=== PATIENT | male | born 1985 | race Hispanic/Latino ===

== ENCOUNTER 2024-11-17 18:17 | Emergency (ER) | payer BC ==
[~2024-11-17] VITALS: Ht 167.6 cm; Wt 104.3 kg
--- NOTE | 2024-11-17 18:23 | ERN ---
General Chief Complaint: Abdominal Pain Stated Complaint: RUQ ABDOMINAL PAIN Time Seen by MD: 18:19 Time Seen by Midlevel: 18:19 Source: patient History of Present Illness Initial Comments Patient is a 39-year-old male with no significant past medical history presenting to the emergency department with right upper quadrant abdominal pain that started 3 hours prior to arrival. The patient states he was eating cocaine chips when the pain started. The pain has progressively worsened. Denies any nausea vomiting or fever. Denies any past surgeries. Allergies: Coded Allergies: No Known Drug Allergies (Unverified Allergy, Unknown, 11/17/24) ROS Dictation CONSTITUTIONAL: Negative except for HPI HEAD/FACE: Negative except for HPI EENT: Negative except for HPI RESPIRATORY: Negative except for HPI GASTROINTESTINAL/ABDOMINAL: Negative except for HPI GENITOURINARY: Negative except for HPI MUSCULOSKELETAL: Negative except for HPI INTEGUMENTARY: Negative except for HPI NEUROLOGICAL/PSYCH: Negative except for HPI HEMATOLOGIC/LYMPHATIC: Negative except for HPI All Systems Negative, Except as noted above. 13 point review of systems assessed and all negative except for above. Physical Exam Physical Exam Dictation Vital Signs reviewed General Appearance: Alert, oriented x 3, no acute distress, well developed, nourished. Head and Face: non-traumatic. Eyes: PERRL, pink conjunctivas, eyelid no trauma, anterior chamber with arcus senilis. Ears: Pinnas intact and no signs of trauma or erythema ear canals clear and no discharge TM no erythema Nose: No discharge, no bleeding. Oropharynx: Mouth normal, tongue pink, pharynx clear,no erythema, tonsils no exudates, no abscesses noted, mucous membrane moist Neck: Supple, non-tender, no thyromegaly, no masses, no JVD, no bruits Breast:Deferred Chest:No tenderness, no crepitus, no paradoxical movement, no retractions Lungs:Clear, well-ventilated, symmetric, no rales, no wheezing, no rhonchi, no stridor, good breath sounds bilaterally Heart: Regular rate, regular rhythm, no murmur, no gallops Vascular: no peripheral edema, Abdomen: Soft, positive bowel sounds, nondistended, no guarding, nontender, no rebound, no masses no hepatomegaly, no splenomegaly, no Toledo's sign, no hernias. Rectal: Deferred Genital: Deferred Neurological: Normal speech, motor function intact, sensory function intact Musculoskeletal: Neck nontender, full range of motion, back nontender, full range of motion, Extremities: nontender, full range of motion Skin: Color pink, dry, no turgor, no rash, no lacerations, no abrasions, no contusions. Lymphatic: Deferred Results Laboratory and Microbiology Lab and Micro Result Laboratory Tests Test 11/17/24 18:39 White Blood Count 7.1 K/uL (4.8-10.8) Red Blood Count 4.54 MIL/uL (4.50-6.20) Hemoglobin 14.5 g/dL (14.0-18.0) Hematocrit 42.1 % (42-54) Mean Corpuscular Volume 92.7 fL (79-99) Mean Corpuscular Hemoglobin 31.9 pg (27.0-33.0) Mean Corpuscular Hemoglobin Concent 34.4 g/dL (32.0-36.0) Red Cell Distribution Width 12.6 % (11.0-15.5) Platelet Count 239 K/uL (130-400) Mean Platelet Volume 10.4 fL (7.5-10.5) Immature Granulocyte % (Auto) 0.4 % (0-1) Neutrophils (%) (Auto) 55.1 % (40.0-77.0) Lymphocytes (%) (Auto) 35.6 % (21.0-51.0) Monocytes (%) (Auto) 5.9 % (3.0-13.0) Eosinophils (%) (Auto) 2.4 % (0.0-8.0) Basophils (%) (Auto) 0.6 % (0.0-5.0) Neutrophils # (Auto) 3.9 K/uL (1.8-7.7) Lymphocytes # (Auto) 2.5 K/uL (1.0-4.8) Monocytes # (Auto) 0.4 K/uL (0.1-1.0) Eosinophils # (Auto) 0.17 K/uL (0.00-0.70) Basophils # (Auto) 0.04 K/uL (0.00-0.20) Absolute Immature Granulocyte (auto 0.03 K/uL (0-1) Nucleated Red Blood Cells 0.0 % (0.0-0.19) Sodium Level 138 mmol/L (136-145) Potassium Level 4.0 mmol/L (3.5-5.1) Chloride Level 105 mmol/L (101-111) Carbon Dioxide Level 29 mmol/L (21-32) Blood Urea Nitrogen 17 mg/dL (7-18) Creatinine 0.9 mg/dL (0.5-1.3) Glomerular Filtration Rate Calc 111 mL/min (>90) Random Glucose 116 mg/dL (70-105) H Total Calcium 8.6 mg/dL (8.5-10.1) Total Bilirubin 0.4 mg/dL (0.2-1.0) Direct Bilirubin 0.1 mg/dL (0.0-0.3) Aspartate Amino Transf (AST/SGOT) 23 U/L (10-37) Alanine Aminotransferase (ALT/SGPT) 25 U/L (12-78) Alkaline Phosphatase 58 U/L (50-136) Total Protein 6.9 g/dL (6.0-8.3) Albumin 3.7 g/dL (3.5-5.0) Lipase 39 U/L (16-77) Labs Reviewed?: Yes MDM MDM: Patient is a 39-year-old male with no significant past medical history presenting to the emergency department with right upper quadrant abdominal pain that started 3 hours prior to arrival. The patient states he was eating cocaine chips when the pain started. The pain has progressively worsened. Denies any nausea vomiting or fever. Denies any past surgeries. On physical examination the patient has right upper quadrant abdominal tenderness with no rebound or guarding. Patient does not appear to be in any acute distress. Initial vital signs are stable. Patient was afebrile and nontoxic appearing. CBC shows no leukocytosis, no anemia, no thrombocytopenia. Chemistries are unremarkable. Liver function tests and bilirubin are normal. Right upper quadrant ultrasound reveals cholelithiasis with no evidence of acute cholecystitis. The patient was explained exactly what his ultrasound findings mean. He understood and all of his questions were answered. He will need to follow up with a general surgeon outpatient for possible cholecystectomy. There was no need for emergent intervention at this time given that there is no evidence of acute cholecystitis and liver function tests including bilirubin is normal. The patient was given pain control in the ER and will be discharged home. Differential diagnosis: Cholelithiasis, biliary colic, cholecystitis, pancreatitis There are no social concerns with this patient. Prescription drug management Prescriptions will include: See discharge summary Medical management and examination interpretation discussions were had by me with other qualified healthcare professionals as indicated for the patient's care. ED Course Orders Procedure Category Date Status Time Cbc With Differential LAB 11/17/24 Complete 18:21 Basic Metabolic Panel LAB 11/17/24 Complete 18:21 Hepatic Function Panel LAB 11/17/24 Complete 18:21 Lipase LAB 11/17/24 Complete 18:21 Us Abdominal Ruq\Ltd US 11/17/24 Resulted 18:21 Vital Signs Date Time Temp Pulse Resp B/P (MAP) Pulse Ox O2 Delivery O2 Flow Rate FiO2 11/17/24 18:19 98.6 63 20 164/90 99 Room Air 0 [place] [id number] [address] IMAGING REPORT Signed PATIENT: KARLA QUISPE MR#: [id number] : 1985 SEX: M AGE: 39 LOCATION: [facility] ORDER 21 STATUS: REG ER REPORT#: [id number] SERVICE 20 REASON: r/o acute cholecystitis ORDERING PHYSICIAN: CELESTINA COOPER PROCEDURE: ABDRUQLTD - US ABDOMINAL RUQ\LTD ULTRASOUND ABDOMEN LIMITED INDICATION: Right upper abdominal pain COMPARISON: None FINDINGS: The liver is normal in size and increased in echogenicity; no focal lesion demonstrated. Main portal vein is patent, and normal direction of vascular flow demonstrated. The common bile duct diameter measures 2.8 mm. Gallbladder is distended, an echogenic shadowing stones demonstrated within the gallbladder lumen without associated pericholecystic fluid. No sonographic Toledo's sign elicited by the ultrasound asphalt screed operator. Wall thickness measures 2.7 mm. Pancreas is obscured by overlying bowel gas. The right kidney measures 11.0 x 4.0 x 6.0 cm,and is normal in echogenicity, without evidence for hydronephrosis.No shadowing stones demonstrated. No free fluid demonstrated. IMPRESSION: Limitations as reported. Cholelithiasis and gallbladder distention without cholecystitis at this juncture. Findings suggesting hepatic steatosis. DICTATED BY: NAS PARKER MD DATE: 11/17/241903 ELECTRONICALLY SIGNED BY: NAS PARKER MD DATE: 11/17/241907 DX & DISP Disposition: Discharge Departure Impression: Primary Impression: Cholelithiasis Additional Impression: Biliary colic Condition: Stable Scripts Ketorolac Tromethamine (Ketorolac Tromethamine) 10 Mg Tablet 1 TAB PO TID for pain for 5 Days, #15 TAB 0 Refills Prov: CELESTINA COOPER 11/17/24 Famotidine (Pepcid) 20 Mg Tablet 1 TAB PO BID for 30 Days, #60 TAB 0 Refills Prov: CELESTINA COOPER 11/17/24 Ondansetron (Ondansetron Odt) 4 Mg Tab.rapdis 4 MG PO BID for 7 Days, #14 TAB Prov: CELESTINA COOPER 11/17/24 Additional Instructions: Your blood work today is unremarkable. Your liver function tests including your bilirubin is normal. Your ultrasound shows evidence of gallstones in your gallbladder however there was no signs of an acute infection. No need for emergent surgery at this time. However, given that we found gallstones you will need to see a general surgeon outpatient for further evaluation and possible surgery. Have given you several medications that should help improve your symptoms. Referrals: SELF,REFERRAL (PCP) GABRIELLE MILLARD MD Time of Disposition: 19:51 I have reviewed the case, and I agree with, Diagnosis and Plan I performed the substantive portion of the visit. I have reviewed and personally made and approve the management plan that is documented in the note by myself or the JONATHAN. I acknowledge for responsibility for the patient's management plan. CELESTINA COOPER Nov 17, 2024 18:23
[2024-11-17 18:48] LABS: BASOPHILS # (AUTO) 0.04 K/uL (0.00-0.20); BASOPHILS % (AUTO) 0.6 % (0.0-5.0); EOSINOPHILS # (AUTO) 0.17 K/uL (0.00-0.70); EOSINOPHILS % (AUTO) 2.4 % (0.0-8.0); HEMATOCRIT 42.1 % (42-54); IMMATURE GRANULOCYTE ABSOLUTE 0.03 K/uL (0-1); LYMPHOCYTES # (AUTO) 2.5 K/uL (1.0-4.8); LYMPHOCYTES % (AUTO) 35.6 % (21.0-51.0); MEAN CORPUSCULAR HEMOGLOBIN 31.9 pg (27.0-33.0); MEAN CORPUSCULAR HGB CONC 34.4 g/dL (32.0-36.0); MEAN CORPUSCULAR VOLUME 92.7 fL (79-99); MONOCYTES # (AUTO) 0.4 K/uL (0.1-1.0); MONOCYTES % (AUTO) 5.9 % (3.0-13.0); NEUTROPHILS # (AUTO) 3.9 K/uL (1.8-7.7); NEUTROPHILS % (AUTO) 55.1 % (40.0-77.0); PLATELET COUNT (AUTO) 239 K/uL (130-400); RED BLOOD CELL COUNT(AUTO) 4.54 MIL/uL (4.50-6.20); RED CELL DISTRIBUTION WIDTH 12.6 % (11.0-15.5); WHITE BLOOD COUNT (AUTO) 7.1 K/uL (4.8-10.8)
[2024-11-17 19:01] LABS: CREATININE 0.9 mg/dL (0.5-1.3)
[2024-11-17 19:05] LABS: ALBUMIN 3.7 g/dL (3.5-5.0); BILIRUBIN,DIRECT 0.1 mg/dL (0.0-0.3); BILIRUBIN,TOTAL 0.4 mg/dL (0.2-1.0); TOTAL PROTEIN, SERUM 6.9 g/dL (6.0-8.3)
--- NOTE | 2024-11-17 19:08 | HMCIMG ---
ULTRASOUND ABDOMEN LIMITED INDICATION: Right upper abdominal pain COMPARISON: None FINDINGS: The liver is normal in size and increased in echogenicity; no focal lesion demonstrated. Main portal vein is patent, and normal direction of vascular flow demonstrated. The common bile duct diameter measures 2.8 mm. Gallbladder is distended, an echogenic shadowing stones demonstrated within the gallbladder lumen without associated pericholecystic fluid. No sonographic Toledo's sign elicited by the ultrasound operator command support systems. Wall thickness measures 2.7 mm. Pancreas is obscured by overlying bowel gas. The right kidney measures 11.0 x 4.0 x 6.0 cm,and is normal in echogenicity, without evidence for hydronephrosis.No shadowing stones demonstrated. No free fluid demonstrated. IMPRESSION: Limitations as reported. Cholelithiasis and gallbladder distention without cholecystitis at this juncture. Findings suggesting hepatic steatosis.
[2024-11-17] MEDS ORDERED: ONDA-243 PO (19:52)
[2024-11-17] MEDS ORDERED: KETO10TA2 PO (19:52)
[2024-11-17] MEDS ORDERED: FAMO-136 PO (19:52)
[2024-11-17 20:07] VITALS: BP 160/85; PULSE 60; RESP 16; TEMP 98.3; O2SAT 98
[2024-11-17] MEDS: ketOROlac 30MG VIAL (30MG/ML) IM ONE (20:24)
== END 2024-11-17 20:30 | disposition home or self-care (01) ==
LOC: EDH 18:17
DX: K80.70 Calculus of gallbladder and bile duct without cholecystitis without obstruction (principal)
CPT/HCPCS: 99284; 76705; 80076; 80048; 83690; 85025; 36415; 96372; J1885